=== PATIENT | female | born 1950 | race Caucasian/White ===

== ENCOUNTER 2018-12-13 22:47 | Observation (INO) | payer OTHER ==
[2018-12-13] MEDS ORDERED: DEXTROSE 50% 50 ML SYRINGE (23:36)
[2018-12-13 23:44] LABS: ADD MAN DIFF? NO
[2018-12-13 23:50] LABS: WHITE BLOOD COUNT 10.4 10^3/ul (4.8-10.8)
[2018-12-13 23:50] LABS: BASOPHILS % 0.4 % (0.0-2.0); EOSINOPHILS # 0.1 10^3/ul (0.0-0.5); EOSINOPHILS % 0.9 % (0.0-7.0); HEMATOCRIT 37.3 % (37.0-47.0); HEMOGLOBIN 12.1 g/dl (12.0-16.0); LYMPHOCYTES # 3.6 10^3/ul (0.8-2.9); LYMPHOCYTES % 34.7 % (15.0-51.0); MEAN CORPUSCULAR HEMOGLOBIN 31.3 pg (29.0-33.0); MEAN CORPUSCULAR HGB CONC 32.4 g/dl (32.0-37.0); MEAN CORPUSCULAR VOLUME 96.6 fl (82.0-101.0); MEAN PLATELET VOLUME 11.7 fl (7.4-10.4); MONOCYTE # 0.8 10^3/ul (0.3-0.9); MONOCYTES % 7.8 % (0.0-11.0); NEUTROPHIL # 5.8 10^3/ul (1.6-7.5); NEUTROPHILS % 55.7 % (39.0-77.0); PLATELET COUNT 226 10^3/UL (140-415); RED BLOOD COUNT 3.86 10^6/ul (4.20-5.40); RED CELL DISTRIBUTION WIDTH 12.8 % (11.5-14.5)
[2018-12-13 23:56] LABS: ADD UMIC NO; UR ASCORBIC ACID 20 mg/dL (NEGATIVE); UR BILIRUBIN (Dip) NEGATIVE (NEGATIVE); UR BLOOD (Dip) NEGATIVE (NEGATIVE); UR CLARITY CLEAR (CLEAR); UR COLOR YELLOW (YELLOW); UR GLUCOSE (Dip) 1+ mg/dL (NEGATIVE); UR KETONES (Dip) TRACE mg/dL (NEGATIVE); UR LEUKOCYTE ESTERASE (Dip) NEGATIVE Leu/ul (NEGATIVE); UR NITRITE (Dip) NEGATIVE (NEGATIVE); UR SPECIFIC GRAVITY (Dip) 1.027 (1.003-1.030); UR TOTAL PROTEIN (Dip) NEGATIVE (NEGATIVE); UR UROBILINOGEN (Dip) 1+ mg/dL (NEGATIVE)
[2018-12-14 00:12] LABS: ALANINE AMINOTRANSFERASE 35 IU/L (13-69); ALBUMIN 3.2 g/dl (3.3-4.9); ALKALINE PHOSPHATASE 72 IU/L (42-121); ANION GAP 5 (5-13); ASPARTATE AMINO TRANSFERASE 26 IU/L (15-46); BILIRUBIN,INDIRECT 0.3 mg/dl (0-1.1); BILIRUBIN,TOTAL 0.3 mg/dl (0.2-1.3); BLOOD UREA NITROGEN 21 mg/dl (7-20); CALCIUM 9.2 mg/dl (8.4-10.2); CARBON DIOXIDE 28 mmol/L (21-31); CHLORIDE 109 mmol/L (97-110); CREATININE 0.54 mg/dl (0.44-1.00); Estimated GFR > 60 mL/min (>60); LIPASE 95 U/L (23-300); POTASSIUM 3.3 mmol/L (3.5-5.1); SODIUM 142 mmol/L (135-144); TOTAL PROTEIN 6.4 g/dl (6.1-8.1)
[2018-12-14 00:14] LABS: GLUCOSE 47 mg/dl (70-220)
[2018-12-14 00:23] LABS: TROPONIN-I < 0.012 ng/ml (0.000-0.120)
[2018-12-14] MEDS: SOD CHLORIDE 0.9% 1,000 ML IV (00:30)
[2018-12-14] MEDS: DEXTROSE 50% 50 ML SYRINGE IV (00:30)
[2018-12-14] MEDS ORDERED: GLUCOSE GEL 15 GRAM TUBE BUCCAL (01:00)
[2018-12-14] MEDS ORDERED: DEXTROSE 50% 50 ML SYRINGE IV ×2 (01:00)
[2018-12-14] MEDS ORDERED: BISACODYL (EC) 5 MG TAB PO (01:00)
[2018-12-14] MEDS: INSULIN ASPART [NOVOLOG] 3 ML PEN SC ×6 (01:00→17:54)
[2018-12-14] MEDS ORDERED: ONDANSETRON 4 MG INJ IV (01:00)
[2018-12-14] MEDS ORDERED: ACETAMINOPHEN 325 MG TAB PO (01:00)
[2018-12-14] MEDS ORDERED: GLUCAGON 1 MG INJ IM (01:00)
[2018-12-14] MEDS ORDERED: NACL 0.9% 3 ML SYG IV (01:00)
[2018-12-14] MEDS ORDERED: GLUCOSE GEL 15 GRAM TUBE PO ×2 (01:00)
[2018-12-14] MEDS ORDERED: DOCUSATE SODIUM 100 MG CAP PO (01:00)
[2018-12-14] MEDS ORDERED: ACCU-CHEK XX (02:00)
[2018-12-14] MEDS: POTASSIUM CHLORIDE (SR) 20 MEQ TAB PO (02:49)
[2018-12-14] MEDS: DEXTROSE 5%-0.45% NACL 1,000 ML IV (02:49)
[2018-12-14 06:33] LABS: ADD MAN DIFF? NO
[2018-12-14 06:43] LABS: WHITE BLOOD COUNT 10.9 10^3/ul (4.8-10.8)
[2018-12-14 06:43] LABS: BASOPHILS % 0.4 % (0.0-2.0); EOSINOPHILS # 0.1 10^3/ul (0.0-0.5); EOSINOPHILS % 0.6 % (0.0-7.0); HEMATOCRIT 40.6 % (37.0-47.0); LYMPHOCYTES # 3.4 10^3/ul (0.8-2.9); LYMPHOCYTES % 30.9 % (15.0-51.0); MEAN CORPUSCULAR VOLUME 96.9 fl (82.0-101.0); MONOCYTE # 0.7 10^3/ul (0.3-0.9); MONOCYTES % 6.2 % (0.0-11.0); NEUTROPHIL # 6.7 10^3/ul (1.6-7.5); NEUTROPHILS % 61.6 % (39.0-77.0); PLATELET COUNT 240 10^3/UL (140-415); RED BLOOD COUNT 4.19 10^6/ul (4.20-5.40); RED CELL DISTRIBUTION WIDTH 12.6 % (11.5-14.5)
[2018-12-14 07:11] LABS: ANION GAP 4 (5-13); BLOOD UREA NITROGEN 19 mg/dl (7-20); CARBON DIOXIDE 27 mmol/L (21-31); CHLORIDE 109 mmol/L (97-110); CREATININE 0.53 mg/dl (0.44-1.00); Estimated GFR > 60 mL/min (>60); MAGNESIUM 1.9 mg/dl (1.7-2.5); POTASSIUM 4.4 mmol/L (3.5-5.1); SODIUM 140 mmol/L (135-144)
[2018-12-14 07:21] LABS: GLUCOSE 194 mg/dl (70-220)
[2018-12-14 08:51] LABS: HEMOGLOBIN A1C 6.7 % (0-5.9)
[2018-12-14] MEDS ORDERED: INSULIN ASPART [NOVOLOG] 3 ML PEN SC (11:20)
[2018-12-14] MEDS: LOSARTAN 50 MG TAB PO (11:32)
[2018-12-14] MEDS: Insulin NOVOLOG SS MILD Algorithm (SS with meals and bedtime) SC ×3 (12:25→21:44)
[2018-12-14] MEDS: FLUOXETINE 20 MG CAP PO (13:34)
[2018-12-14] MEDS: DIVALPROEX (ER) 500 MG TAB PO (13:34)
[2018-12-14] MEDS: MEMANTINE 5 MG TAB PO (13:34)
[2018-12-14] MEDS: ACCU-CHEK XX ×2 (13:50→21:36)
[2018-12-14] MEDS: RISPERIDONE 1 MG TAB PO (15:10)
[2018-12-14] MEDS: ARIPIPRAZOLE 10 MG TAB PO (15:10)
[2018-12-14] MEDS: TOLTERODINE (SR) 2 MG CAP PO (21:00)
[2018-12-14] MEDS: ATORVASTATIN 40 MG TAB PO (21:37)
[2018-12-14] MEDS: INSULIN GLARGINE [LANTus] (100 UNITS/ML) SYG SC (21:44)
[2018-12-15] MEDS: ACCU-CHEK XX ×2 (02:43→10:00)
[2018-12-15 07:34] LABS: ADD MAN DIFF? NO
[2018-12-15 07:45] LABS: BASOPHIL # 0.1 10^3/ul (0.0-0.1); BASOPHILS % 0.6 % (0.0-2.0); EOSINOPHILS # 0.1 10^3/ul (0.0-0.5); EOSINOPHILS % 1.4 % (0.0-7.0); HEMATOCRIT 41.1 % (37.0-47.0); HEMOGLOBIN 13.5 g/dl (12.0-16.0); LYMPHOCYTES % 35.7 % (15.0-51.0); MEAN CORPUSCULAR HGB CONC 32.8 g/dl (32.0-37.0); MEAN CORPUSCULAR VOLUME 94.3 fl (82.0-101.0); MEAN PLATELET VOLUME 12.2 fl (7.4-10.4); MONOCYTE # 0.6 10^3/ul (0.3-0.9); MONOCYTES % 6.6 % (0.0-11.0); NEUTROPHIL # 4.7 10^3/ul (1.6-7.5); NEUTROPHILS % 55.5 % (39.0-77.0); PLATELET COUNT 231 10^3/UL (140-415); RED BLOOD COUNT 4.36 10^6/ul (4.20-5.40); RED CELL DISTRIBUTION WIDTH 12.5 % (11.5-14.5)
[2018-12-15 07:45] LABS: WHITE BLOOD COUNT 8.4 10^3/ul (4.8-10.8)
[2018-12-15] MEDS: Insulin NOVOLOG SS MILD Algorithm (SS with meals and bedtime) SC ×2 (08:10→12:18)
[2018-12-15] MEDS: INSULIN ASPART [NOVOLOG] 3 ML PEN SC ×2 (08:10→12:18)
[2018-12-15 08:15] LABS: MAGNESIUM 1.9 mg/dl (1.7-2.5)
[2018-12-15 08:15] LABS: PHOSPHORUS 3.8 mg/dl (2.5-4.9)
[2018-12-15 08:17] LABS: ANION GAP 5 (5-13); BLOOD UREA NITROGEN 20 mg/dl (7-20); CALCIUM 9.2 mg/dl (8.4-10.2); CARBON DIOXIDE 27 mmol/L (21-31); CHLORIDE 107 mmol/L (97-110); CREATININE 0.53 mg/dl (0.44-1.00); Estimated GFR > 60 mL/min (>60); GLUCOSE 186 mg/dl (70-220); SODIUM 139 mmol/L (135-144)
[2018-12-15] MEDS: FLUOXETINE 20 MG CAP PO (08:40)
[2018-12-15] MEDS: MEMANTINE 5 MG TAB PO (08:40)
[2018-12-15] MEDS: LOSARTAN 50 MG TAB PO (08:40)
[2018-12-15] MEDS: DIVALPROEX (ER) 500 MG TAB PO (08:40)
[2018-12-15] MEDS: ARIPIPRAZOLE 10 MG TAB PO (08:40)
[2018-12-15] MEDS: RISPERIDONE 1 MG TAB PO (08:40)
== END 2018-12-15 15:15 | disposition home or self-care (01) ==
LOC: E/R 22:47 → TEL 12-14 00:39
PROVIDERS: Family Medicine
DX: E10.649 Type 1 diabetes mellitus with hypoglycemia without coma (principal); R55 Syncope and collapse; G93.40 Encephalopathy, unspecified; N32.81 Overactive bladder; I10 Essential (primary) hypertension; E86.0 Dehydration; E78.5 Hyperlipidemia, unspecified; Z79.4 Long term (current) use of insulin
CPT/HCPCS: 36415; 70450; 71045; 80048; 80053; 81003; 82306; 82962; 83036; 83690; 83735; 84100; 84443; 84484; 85025; 93005; 96374; 99285-25; G0378